=== PATIENT | female | born 1975 | race Caucasian/White ===

== ENCOUNTER 2016-06-21 23:11 | Emergency (ER) | payer OTHER ==
[~2016-06-21] VITALS: Ht 165.1 cm; Wt 45.4 kg
[2016-06-22 00:04] VITALS: BP 127/90
--- NOTE | 2016-06-22 02:33 | NUR ---
40Y F BIBA C/O LEFT FOOT PAIN S/P WEARING FLIP FLOPS WHILE WALKING TODAY .PT DENIES N/V/D; SKIN IS PINK/WARM/DRY; AAOX4 WITH EVEN AND STEADY GAIT; LUNGS CLEAR BL; HR EVEN AND REGULAR; PT DENIES ANY FEVER, CP, SOB, OR COUGH AT THIS TIME; PATIENT STATES PAIN OF 10/10 AT THIS TIME; VSS; PATIENT POSITIONED FOR COMFORT; HOB ELEVATED; BEDRAILS UP X2; BED DOWN. ER MD MADE AWARE OF PT STATUS.
--- NOTE | 2016-06-22 02:33 | NUR ---
TO ER BED 3 FROM ER LOBBY
--- NOTE | 2016-06-22 02:34 | NUR ---
Patient being evaluated by physician at bedside.
[2016-06-22] MEDS ORDERED: HYDROcodone/APAP 5/325 MG 1 TAB TAB PO ONE (02:40)
--- NOTE | 2016-06-22 02:56 | NUR ---
XRAY AT BEDSIDE
[2016-06-22 03:02] LABS: ANION GAP 8.7 (8-16); CALCIUM 8.5 mg/dL (8.5-10.1); CARBON DIOXIDE 31.8 mmol/L (21-32); CREATININE 0.6 mg/dL (0.6-1.3); POTASSIUM 3.5 mmol/L (3.5-5.1)
--- NOTE | 2016-06-22 03:30 | NUR ---
Patient discharged with v/s stable. Written and verbal after care instructions given and explained. Patient alert, oriented and verbalized understanding of instructions. Ambulatory with steady gait. All questions addressed prior to discharge. ID band removed. Patient advised to follow up with PMD. Rx of NORCO 5/325MG AND NAPROSYN 500MG given. Patient educated on indication of medication including possible reaction and side effects. Opportunity to ask questions provided and answered.
[2016-06-22 03:31] VITALS: BP 126/89
== END 2016-06-22 03:30 | disposition home or self-care (01) ==
LOC: MED 23:11
DX: S90.32XA Contusion of left foot, initial encounter (principal); F44.5 Conversion disorder with seizures or convulsions; Z88.5 Allergy status to narcotic agent; Y93.01 Activity, walking, marching and hiking; Y92.89 Other specified places as the place of occurrence of the external cause
CPT/HCPCS: 36415; 73630; 80048; 99285; Q0092

== ENCOUNTER 2016-06-22 07:36 | Emergency (ER) | payer OTHER ==
[~2016-06-22] VITALS: Ht 165.1 cm; Wt 46.0 kg
[2016-06-22 07:43] VITALS: BP 141/105
--- NOTE | 2016-06-22 08:13 | NUR ---
PATIENT PRESENTS TO ED WITH LEFT FOOT PAIN S/P SLIP YESTERDAY. PT DENIES FALL. DENIES N/V/D; SKIN IS PINK/WARM/DRY; AAOX4; LUNGS CLEAR BL; HR EVEN AND REGULAR; PT DENIES ANY FEVER, CP, SOB, OR COUGH AT THIS TIME; PATIENT STATES PAIN OF 10/10 AT THIS TIME; VSS; PATIENT POSITIONED FOR COMFORT; HOB ELEVATED; BEDRAILS UP X2; BED DOWN. ER MD MADE AWARE OF PT STATUS.
[2016-06-22] MEDS ORDERED: CYCLOBENZAPRINE 10 MG TAB PO ONE (08:35)
[2016-06-22 09:07] VITALS: BP 146/91
--- NOTE | 2016-06-22 09:07 | NUR ---
Patient discharged with v/s stable. Written and verbal after care instructions given and explained. Patient alert, oriented and verbalized understanding of instructions. Ambulatory with to home. All questions addressed prior to discharge. ID band removed. Patient advised to follow up with PMD. Rx of FLEXERIL given. Patient educated on indication of medication including possible reaction and side effects. Opportunity to ask questions provided and answered.
== END 2016-06-22 08:56 | disposition home or self-care (01) ==
LOC: MED 07:36
DX: R25.2 Cramp and spasm (principal); N63 Unspecified lump in breast; Z88.6 Allergy status to analgesic agent; Z88.8 Allergy status to other drugs, medicaments and biological substances
CPT/HCPCS: 99283